=== PATIENT | female | born 1980 | race Caucasian/White ===

== ENCOUNTER → 2022-02-06 | Outpatient (CLI) | payer OTHER ==
[~2022-02-06] MED LIST: GADOTERATE MEGLUMINE 10 MMOL/20 ML VIAL IV ONE
== END | disposition home or self-care (01) ==
LOC: RAH 07:45
PROVIDERS: ATTEND Family Medicine Sports Medicine
DX: N64.4 Mastodynia (principal); Z80.3 Family history of malignant neoplasm of breast
CPT/HCPCS: 77049; A9575

== ENCOUNTER → 2022-06-02 | Outpatient (CLI) | payer OTHER | END | disposition home or self-care (01) | LOC: RAH 10:25 | PROVIDERS: ATTEND Surgery | DX: E04.2 Nontoxic multinodular goiter (principal) | CPT/HCPCS: 78014; A9516 ==

== ENCOUNTER → 2023-08-02 | Outpatient (CLI) | payer OTHER ==
[~2023-08-02] MED LIST changes: +CEPH500C2 PO; -GADOTERATE MEGLUMINE 10 MMOL/20 ML VIAL IV ONE; +METHI10 PO; +METO25TA3 PO
== END | disposition home or self-care (01) ==
LOC: RAH 08:25
PROVIDERS: ATTEND Hospitalist
DX: R10.11 Right upper quadrant pain (principal)
CPT/HCPCS: 76705